=== PATIENT | born 1965 | race Caucasian/White ===

== ENCOUNTER → 2025-05-26 08:17 | Outpatient (BNVA) | payer MEDICARE, SELFPAY | PROVIDERS: Referring Provider Internal Medicine; Visit Provider Internal Medicine Rheumatology | DX: M05.79 Rheumatoid arthritis with rheumatoid factor of multiple sites without organ or systems involvement (principal); I48.20 Chronic atrial fibrillation, unspecified; R55 Syncope and collapse; Z79.899 Other long term (current) drug therapy; Z71.85 Encounter for immunization safety counseling; E11.9 Type 2 diabetes mellitus without complications; I50.9 Heart failure, unspecified; M25.50 Pain in unspecified joint; M81.0 Age-related osteoporosis without current pathological fracture; M25.741 Osteophyte, right hand; M18.12 Unilateral primary osteoarthritis of first carpometacarpal joint, left hand | CPT/HCPCS: 36415; 72040; 73130; 80076; 82306; 82565; 85025; 85651; 86140; 86480; 86704; 86803; 87340; 99205 ==